=== PATIENT | female | born 1950 ===

== ENCOUNTER → 2018-06-18 | Outpatient (CLI) | payer MEDICARE ==
[~2018-06-18] MED LIST: BUPR75; CEPH250A PO; HYDACE5 PO; PARO30; QUET100; RXCEPH500 PO
== END | disposition home or self-care (01) ==
LOC: LAB SHORT 07:41 → PLD 07:41
DX: D48.5 Neoplasm of uncertain behavior of skin (principal)
CPT/HCPCS: 88305

== ENCOUNTER → 2023-07-10 | Outpatient (CLI) | payer MEDICARE | LOC: LAB SHORT 14:59 → PLD 14:59 | DX: L57.0 Actinic keratosis (principal) | CPT/HCPCS: 88305 ==